=== PATIENT | female | born 1995 | race Hispanic/Latino ===

== ENCOUNTER 2023-07-18 12:53 | Emergency (ER) | payer MEDICAID, SELFPAY ==
[2023-07-18] MEDS ORDERED: Ketorolac Tromethamine 30 MG (1 mL) VIAL ONE ×2 (14:21→14:22)
== END 2023-07-18 14:40 | disposition home or self-care (01) ==
LOC: ERS 12:53
DX: H60.502 Unspecified acute noninfective otitis externa, left ear (principal)
CPT/HCPCS: 96372; 99282; J1885

== ENCOUNTER 2023-11-20 17:22 | Emergency (ER) | payer SELFPAY ==
[2023-11-20] MEDS ORDERED: Ketorolac Tromethamine 30 MG (1 mL) VIAL ONE (19:31)
[2023-11-20] MEDS ORDERED: Albuterol 200 PUFF (6.7GM INHALER) ONE (19:34)
[2023-11-20] MEDS ORDERED: Acetaminophen 500 MG TAB ONE (20:02)
[2023-11-20 21:07] LABS: #Basophils Less than 0.03 10x3/uL (0.0-0.2); %Basophils 0.3 % (0.0-1.0); %Eosinophils 1.6 % (0.0-10.0); %Lymphocytes 15.5 % (21.0-51.0); %Monocytes 10.3 % (0.0-10.0); %Neutrophils 72.2 % (42.0-75.0); Hematocrit 41.3 % (36.0-47.0); Hemoglobin 14.2 g/dL (12.0-16.0); Mean Corpuscular HGB CONC 34.4 g/dL (32.0-36.0); Mean Corpuscular Hemoglobin 30.7 pg (27.0-31.0); Mean Corpuscular Volume 89.4 fL (78.0-98.0); Mean Platelet Volume 10.8 fL (7.4-10.4); Platelet Count 306 10x3/uL (130-400); RBC Distribution Width 12.6 % (11.5-14.5); Red Blood Cell (RBC) Count 4.62 mill/uL (4.20-5.40)
[2023-11-20 21:19] LABS: Influenza A by NAA Not Detected (NotDetected); Influenza B by NAA Not Detected (NotDetected); SARS-CoV-2 NAA Rapid Test DETECTED (NotDetected)
[2023-11-20 21:23] LABS: ALT (SGPT) 12 U/L (8-55); AST (SGOT) 11 U/L (5-34); Albumin 3.8 g/dL (3.5-5.0); Alkaline Phosphatase 76 U/L (40-110); Anion Gap 12 mmol/L (10-20); BUN (Urea Nitrogen) 9 mg/dL (7.0-18.7); Bilirubin, Total 0.3 mg/dL (0.2-1.2); Calc. Creatinine Clearance 0 mL/min (70-130); Calcium 8.5 mg/dL (7.8-10.44); Carbon Dioxide 17 mmol/L (22-29); Chloride 111 mmol/L (98-107); Estimated GFR 105; Globulin 3.4 g/dL (2.4-3.5); Glucose 98 mg/dL (70-105); Potassium 3.2 mmol/L (3.5-5.1); Protein, Total 7.2 g/dL (6.0-8.3); Sodium 137 mmol/L (136-145)
[2023-11-20] MEDS ORDERED: Potassium Chloride 20 MEQ TAB ONE (21:45)
== END 2023-11-20 21:49 | disposition home or self-care (01) ==
LOC: ERS 17:22
DX: U07.1 COVID-19 (principal); E87.6 Hypokalemia; J45.901 Unspecified asthma with (acute) exacerbation
CPT/HCPCS: 36415; 71045; 80053; 83605; 85025; 87040; 93005; 96372; J1885

== ENCOUNTER 2025-02-07 05:15 | Day surgery (SDC) | payer SELFPAY ==
[2025-02-07] MEDS ORDERED: Ondansetron PF 4 MG/2 ML Vial ONE ×4 (05:56→13:03)
[2025-02-07] MEDS ORDERED: Ketorolac Tromethamine 30 MG (1 mL) VIAL ONE (05:56)
[2025-02-07 06:21] LABS: #Basophils 0.04 10x3/uL (0.0-0.2); #Eosinophils 0.26 10x3/uL (0.0-0.7); #Monocytes 0.88 10x3/uL (0.11-0.59); #Neutrophils 5.21 10x3/uL (1.40-6.50); %Basophils 0.4 % (0.0-1.0); %Eosinophils 2.4 % (0.0-10.0); %Lymphocytes 41.4 % (21.0-51.0); %Monocytes 8.1 % (0.0-10.0); %Neutrophils 47.5 % (42.0-75.0); Hematocrit 42.5 % (36.0-47.0); Hemoglobin 14.8 g/dL (12.0-16.0); Mean Corpuscular Hemoglobin 30.3 pg (27.0-31.0); Mean Corpuscular Volume 87.1 fL (78.0-98.0); Platelet Count 274 10x3/uL (130-400); Red Blood Cell (RBC) Count 4.88 mill/uL (4.20-5.40); White Blood Cell (WBC) Count 10.93 10x3/uL (4.8-10.8)
[2025-02-07 06:34] LABS: Bacteria/HPF None Seen HPF (None Seen); CAUTI Indications for Culture Pelvic or flank pain; Glucose, Urine (Dipstick) Normal (Negative); Leukocyte 250 Leu/uL (Negative); Protein, Urine (Dipstick) Negative (Neg-Trace); RBC/HPF None Seen HPF (0-3); Specific Gravity, Urine 1.020 (1.002-1.036)
[2025-02-07 06:35] LABS: ALT (SGPT) 13 U/L (Less than 34); AST (SGOT) 17 U/L (11-34); Albumin 3.9 g/dL (3.1-4.5); Alkaline Phosphatase 107 U/L (40-110); Anion Gap 15 mmol/L (10-20); BUN (Urea Nitrogen) 12 mg/dL (7.0-18.7); Bilirubin, Total 0.3 mg/dL (0.3-1.2); Calc. Creatinine Clearance 0 mL/min (70-130); Calcium 8.8 mg/dL (7.8-10.44); Carbon Dioxide 20 mmol/L (22-29); Chloride 110 mmol/L (98-107); Globulin 3.4 g/dL (2.4-3.5); Glucose 108 mg/dL (70-105); Lipase 27 U/L (8-78); Potassium 3.5 mmol/L (3.5-5.1); Sodium 141 mmol/L (136-145)
[2025-02-07 06:38] LABS: Pregnancy Test - Urine (BHCG) Negative (Negative); Pregu Control Background? CLEAR/WHITE (CLR/WHITE); Pregu Control Bar Appear? YES (CONTROL BAR)
[2025-02-07 06:39] LABS: Urine Culture Reflex Yes Yes
[2025-02-07] MEDS ORDERED: cefTRIAXone (ROCEPHIN) 2 GM VIAL ONE (06:50)
[2025-02-07] MEDS ORDERED: Ondansetron PF 4 MG/2 ML Vial IVP PRN (09:27)
[2025-02-07] MEDS ORDERED: Dextrose 50% Abboject 50 ML SYRINGE SLOW IVP PRN (09:27)
[2025-02-07] MEDS ORDERED: Glucagon 1 MG/ML KIT IM PRN (09:27)
[2025-02-07] MEDS ORDERED: Acetaminophen 325 MG TAB PO PRN (09:27)
[2025-02-07] MEDS ORDERED: Bupivacaine 0.25% HCL 30 ML VIAL ONE (09:56)
[2025-02-07] MEDS ORDERED: PROPOFOL 20 ML ONE (10:02)
[2025-02-07] MEDS ORDERED: fentaNYL PF 100 MCG/2 ML SYRINGE ONE ×2 (10:02→12:00)
[2025-02-07] MEDS ORDERED: SUGAMMADEX SODIUM 200 MG/2 ML VIAL ONE (10:03)
[2025-02-07] MEDS ORDERED: Lidocaine 1% PF 5 ML VIAL ONE (10:03)
[2025-02-07] MEDS ORDERED: Rocuronium Bromide 10 MG/ML (10ML VIAL) ONE (10:03)
[2025-02-07] MEDS ORDERED: CEFAZOLIN 2 GM VIAL ONE (10:24)
[2025-02-07] MEDS ORDERED: Mag-Al 1200 mg/1200 mg/30 ML UDCUP PO PRN (11:53)
[2025-02-07] MEDS ORDERED: HYDROcodone/Acetaminophen 10/325 mg Tablet PO PRN (11:53)
[2025-02-07] MEDS ORDERED: hydrALAZINE 20 MG/ML VIAL SLOW IVP PRN (11:53)
[2025-02-07] MEDS ORDERED: HYDROcodone/Acetaminophen 5/325 mg Tablet ONE (12:44)
[2025-02-07] MEDS ORDERED: Famotidine 20 MG TAB PO SCH (21:00)
[2025-02-07] MEDS ORDERED: Famotidine/PF 20 mg/2ml Vial SLOW IVP SCH (21:00)
== END 2025-02-07 14:33 | disposition home or self-care (01) ==
LOC: ERS 05:15 → SDC 10:08
PROVIDERS: ATTEND Colon & Rectal Surgery
PROC: 0FT44ZZ Resection of Gallbladder, Percutaneous Endoscopic Approach (ICD-10-PCS; principal; 2025-02-07)
DX: K80.66 Calculus of gallbladder and bile duct with acute and chronic cholecystitis without obstruction (principal)
CPT/HCPCS: 76705; 80053; 81001; 81025; 83690; 85025; 87086; 88304; 96361; 96365; 96375; 96376; C1889; J0169; J0665; J0696; J1100; J1885; J2250; J2270; J2272; J2405; J2704; J3010